=== PATIENT | male | born 1975 | race Caucasian/White ===

== ENCOUNTER 2018-01-07 23:14 | Emergency (ER) | payer SELFPAY ==
[~2018-01-07] VITALS: Ht 175.3 cm; Wt 100.5 kg
[2018-01-07 23:27] VITALS: Ht 175.3 cm; Wt 100.5 kg
[2018-01-08 01:06] VITALS: BP 120/72
== END 2018-01-08 01:07 | disposition home or self-care (01) ==
LOC: D.ER 23:14
DX: S60.032A Contusion of left middle finger without damage to nail, initial encounter (principal); W23.0XXA Caught, crushed, jammed, or pinched between moving objects, initial encounter; Y93.89 Activity, other specified; Y92.89 Other specified places as the place of occurrence of the external cause

== ENCOUNTER 2018-10-23 07:46 | Inpatient (IN) | payer SELFPAY ==
[2018-10-23 08:47] LABS: BASOPHILS 0.2 % (0-2); EOSINOPHILS 2.8 % (0-7); HEMATOCRIT 36.6 % (42.0-54.0); HEMOGLOBIN 12.7 g/dL (13.5-17.5); IMMATURE GRANULOCYTES 0.2 % (0-5); MCHC 34.7 g/dL (31.0-37.0); MCV 80.6 fL (80.0-100.0); MEAN PLATELET VOLUME 9.3 fL (7.4-10.4); MONOCYTES 8.4 % (2-11); NEUTROPHILS 82.4 % (40-80); RBC 4.54 10x6/uL (4.20-6.10); RDW 14.9 % (11.5-14.5); WBC 9.8 10x3/uL (4.8-10.8)
--- NOTE | 2018-10-23 09:00 | NUR ---
PATIENT UPDATED ON PLAN OF CARE AND DELAYS IN CARE. NO NEEDS NOTED. WILL CONTINUE TO MONITOR.
[2018-10-23 09:02] LABS: PLATELET COUNT 100 10x3/uL (130-400)
[2018-10-23 09:04] LABS: ALBUMIN 3.2 g/dL (3.4-5.0); ALKALINE PHOSPHATASE 79 U/L (46-116); ALT (SGPT) 26 U/L (10-68); BILIRUBIN - TOTAL 1.69 mg/dL (0.2-1.3); CALC OSMOLALITY 288 mosm/kg (275-300); CALCIUM 8.4 mg/dL (8.5-10.1); CARBON DIOXIDE 23.6 mmol/L (21.0-32.0); CHLORIDE - SERUM 102 mmol/L (98-107); GLUCOSE 392 mg/dL (74-106); KETONE - SERUM NEGATIVE (NEGATIVE); MAGNESIUM - SERUM 1.8 mg/dL (1.8-2.4); POTASSIUM - SERUM 3.6 mmol/L (3.5-5.1); PROTEIN - SERUM 6.6 g/dL (6.4-8.2); SODIUM 136 mmol/L (136-145); UREA NITROGEN 16 mg/dL (7-18); eGFR NON AFRICAN AMERICAN 87 mL/min (90-120)
[2018-10-23 09:32] LABS: APPEARANCE CLEAR (CLEAR); BILIRUBIN NEGATIVE (NEGATIVE); COLOR YELLOW (YELLOW); GLUCOSE 1000 mg/dL (NEGATIVE); KETONE MODERATE mg/dL (NEGATIVE); NITRITE NEGATIVE (NEGATIVE); PROTEIN TRACE mg/dL (NEGATIVE); SPECIFIC GRAVITY 1.015 (1.005-1.020)
[2018-10-23 09:33] LABS: BACTERIA FEW /hpf (NONE SEEN); EPITHELIAL CELLS OCC /hpf (0-5); MUCUS <1+ /lpf (NONE SEEN); RED CELLS - URINE 0-5 /hpf (0-5); SPERMATOZOA OCC /hpf (NONE SEEN); WHITE CELLS - URINE RARE /hpf (0-5)
[2018-10-23 09:47] LABS: PLATELET ESTIMATE DECREASED
[2018-10-23 09:49] LABS: ANISOCYTOSIS OCC; ROULEAUX OCC
--- NOTE | 2018-10-23 10:00 | NUR ---
PATIENT AWAKE AND ALERT. HE IS TEXTING ON HIS CELL PHONE. NO NEEDS NOTED. UPDATED ON PLAN OF CARE AND DELAYS IN CARE. WILL CONTINUE TO MONITOR.
[2018-10-23 10:25] VITALS: BP 108/63
--- NOTE | 2018-10-23 11:00 | NUR ---
PATIENT IS AWAKE AND ALERT. NO NEEDS NOTED. UPDATED ON PLAN OF CARE AND DELAYS IN CARE. WILL CONTNUE TO MONITOR.
[2018-10-23 12:15] VITALS: BP 113/71
--- NOTE | 2018-10-23 13:00 | NUR ---
PT ARRIVED TO ROOM 2224 FROM ER ORIENTATED TO ROOM CL IN REACH
[2018-10-23 13:54] VITALS: BP 104/53
[2018-10-23 17:55] VITALS: BP 133/79
--- NOTE | 2018-10-23 18:05 | MORECARE ---
CASE MANAGEMENT DISCHARGE SUMMARY PATIENT: JONEL LADD UNIT: [id number] ADM DATE: 10/23/18 AGE: 43 : 75 SEX: M ROOM/BED: D.2224 AUTHOR: ERIN AGEE PHYSICIAN: REFERRING PHYSICIAN: HOLLAND MITCHELL DO DATE OF SERVICE: 10/23/18 Discharge Plan Patient Name: JONEL LADD [facility] [facility] 1975 Planned Disposition: Home Anticipated Discharge Date: Discharge Date: Expected LOS: Initial Reviewer: [email or web address] Initial Review Date: 10/23/2018 Generated: 10/23/18 7:05 pm Patient Name: JONEL LADD Page [id number] at 1805 All edits/amendments must be made on the electronic document DICTATION DATE: 10/23/181803 RUG SETTER AXMINSTER: CARLTON 10/23/181803 RPT#: [id number] DC DATE: STATUS: ADM IN [facility] [address] [place] [address] END OF REPORT
--- NOTE | 2018-10-23 18:11 | MORECARE ---
CASE MANAGEMENT DISCHARGE SUMMARY PATIENT: JONEL LADD UNIT: [id number] ADM DATE: 10/23/18 AGE: 43 : 75 SEX: M ROOM/BED: D.2224 AUTHOR: ERIN AGEE PHYSICIAN: REFERRING PHYSICIAN: HOLLAND MITCHELL DO DATE OF SERVICE: 10/23/18 Discharge Plan Patient Name: JONEL LADD [facility] [facility] 1975 Planned Disposition: Home Anticipated Discharge Date: Discharge Date: Expected LOS: Initial Reviewer: [email or web address] Initial Review Date: 10/23/2018 Generated: 10/23/18 7:11 pm DCPIA - Discharge Planning Initial Assessment Updated by [email or web address]: Anika Parada on 10/23/18 6:07 pm * Is the patient Alert and Oriented? Yes * How many steps to enter\exit or inside your home? ONE * PCP DR LAWSON * Pharmacy [facility] [place] * Preadmission Environment Home Alone * ADLs Independent * Equipment None * Other Equipment N/A * List name and contact numbers for known caregivers / representatives who currently or will assist patient after discharge: RUBEN HUGHES- [phone] * Verbal permission to speak to the caregivers and representatives has been obtained from the patient. No * Community resources currently utilized None * Please name any agencies selected above. N/A * Additional services required to return to the preadmission environment? Yes * Can the patient safely return to the preadmission environment? Yes * Has this patient been hospitalized within the prior 30 days at any hospital? No Last DP export: 10/23/18 5:05 p Patient Name: JONEL LADD Page [id number] at 1811 All edits/amendments must be made on the electronic document DICTATION DATE: 10/23/181810 PHYSICAL THERAPIST ASSISTANT: CARLTON 10/23/181810 RPT#: [id number] DC DATE: STATUS: ADM IN [facility] [address] [place] [address] END OF REPORT
--- NOTE | 2018-10-23 18:30 | MORECARE ---
CASE MANAGEMENT DISCHARGE SUMMARY PATIENT: JONEL LADD UNIT: [id number] ADM DATE: 10/23/18 AGE: 43 : 75 SEX: M ROOM/BED: D.2224 AUTHOR: CYNDIE,DOC PHYSICIAN: REFERRING PHYSICIAN: HOLALND MITCHELL DO DATE OF SERVICE: 10/23/18 Discharge Plan Patient Name: JONEL LADD Facility: [facility]:[place] : 1975 Planned Disposition: Home Anticipated Discharge Date: Discharge Date: Expected LOS: Initial Reviewer: [email or web address] Initial Review Date: 10/23/2018 Generated: 10/23/18 7:30 pm DCP- Discharge Planning Updated by [email or web address]: Anika Parada on 10/23/18 5:[address] CM RECEIVED CONSULT. PATIENT IS NON COMPLAINT WITH HIS DIABETIC MEDICATIONS. CM VISITED EXPLAINED ROLE AND RECEIVED PERMISSION TO CONTINUE THE ASSESSEMENT. CM ASK WHY HE DID NOT TAKE HIS MEDICATIONS. PATIENT STATES HE KNOWS HE SHOULD, HE IS "HARD HEADED." STATES WE HAVE GIVEN HIM" SOMETHINGS TO THINK ABOUT. " CM EXPLAINED IN DETAIL THE PROCESS FOR DETERIORATION OF EXTREMITIES AND TREATMENT ISSUES. THE PATIENT STATES HE DOES NOT QUALIFY FOR MEDICAID. HE MAKES" JUST A LITTLE TOO MUCH MONEY." MED DATA HAS VISITED WITH HIM. HE STATES HE THINKS HE CAN AFFORD THE MEDS. LIKELY WILL NEED ASSISTANCE. DME- NONE PCP[facility] [address] ADVISED [facility] WHICH MAY BE ABLE TO ASSIST WITH A RESOURCE. ADVISED CM'S WILL FOLLOW TO ASSIST IS APPROPRIATE. STRONGLY ENCOURAGED TO COMPLY TO MAINTAIN HIS EXTREMITIES. PATIENT IS PLANNING ON DRIVING HIMSELF HOME. HIS CAR IS IN THE PARKING LOT. DCPIA - Discharge Planning Initial Assessment Updated by [email or web address]: Anika Parada on 10/23/18 6:07 pm * Is the patient Alert and Oriented? Yes * How many steps to enter\\exit or inside your home? ONE * PCP DR LAWSON * Pharmacy [facility] [address] * Preadmission Environment Home Alone * ADLs Independent * Equipment None * Other Equipment N/A * List name and contact numbers for known caregivers / representatives who currently or will assist patient after discharge: RUBEN HUGHES- [phone] * Verbal permission to speak to the caregivers and representatives has been obtained from the patient. No * Community resources currently utilized None * Please name any agencies selected above. N/A * Additional services required to return to the preadmission environment? Yes * Can the patient safely return to the preadmission environment? Yes * Has this patient been hospitalized within the prior 30 days at any hospital? No Last DP export: 10/23/18 5:11 p Patient Name: JONEL LADD Page [phone] at 1830 All edits/amendments must be made on the electronic document DICTATION DATE: 10/23/181829 SUBSTANCE ABUSE PREVENTION COORDINATOR: CARLTON 10/23/181829 RPT#: [id number] DC DATE: STATUS: ADM IN [facility] [address] [place] [address] END OF REPORT
--- NOTE | 2018-10-23 19:00 | NUR ---
REPORT RECEIVED AND CARE OF PT ASSUMED. PT LYING IN SEMI LEONARD'S POSITION WATCHING TV. IV IN RIGHT AC PATENT WITH NS INFUSING AT 100 ML / HR. WILL MONITOR FOR NEEDS.
[2018-10-23 20:00] VITALS: BP 149/87
--- NOTE | 2018-10-23 20:08 | NUR ---
PAGED OBSERVATORY DIRECTOR HIGH SCHOOL SOCIAL STUDIES TUTOR AND RECEIVED ORDER FOR FIORICET PO FOR PT C/O MAGRAINE HEADACHE.
--- NOTE | 2018-10-23 20:26 | NUR ---
HS MEDICATIONS GIVEN. FSBS 236 REQUIRING COVERAGE WITH 4 UNITS OF INSULIN PER SLIDING SCALE.
--- NOTE | 2018-10-23 21:16 | NUR ---
GAVE FIORICET PO PER PRN ORDER FOR MIGRAINE HEADACHE.
[2018-10-24] VITALS: BP 102/56
[2018-10-24 04:00] VITALS: BP 124/74
[2018-10-24 04:25] LABS: BASOPHILS 0.3 % (0-2); EOSINOPHILS 5.4 % (0-7); HEMATOCRIT 33.2 % (42.0-54.0); HEMOGLOBIN 11.5 g/dL (13.5-17.5); IMMATURE GRANULOCYTES 0.2 % (0-5); LYMPHOCYTES 14.8 % (15-50); MCH 27.6 pg (26.0-34.0); MCHC 34.6 g/dL (31.0-37.0); MCV 79.8 fL (80.0-100.0); MEAN PLATELET VOLUME 9.8 fL (7.4-10.4); MONOCYTES 12.4 % (2-11); NEUTROPHILS 66.9 % (40-80); PLATELET COUNT 81 10x3/uL (130-400); RBC 4.16 10x6/uL (4.20-6.10); RDW 14.6 % (11.5-14.5)
[2018-10-24 04:29] LABS: WBC 6.5 10x3/uL (4.8-10.8)
[2018-10-24 04:39] LABS: ALBUMIN 2.4 g/dL (3.4-5.0); ALKALINE PHOSPHATASE 93 U/L (46-116); ALT (SGPT) 26 U/L (10-68); BILIRUBIN - TOTAL 1.02 mg/dL (0.2-1.3); CALCIUM 7.6 mg/dL (8.5-10.1); CARBON DIOXIDE 23.4 mmol/L (21.0-32.0); CHLORIDE - SERUM 105 mmol/L (98-107); CREATININE - SERUM 0.8 mg/dL (0.6-1.3); POTASSIUM - SERUM 3.1 mmol/L (3.5-5.1); PROTEIN - SERUM 5.4 g/dL (6.4-8.2); SODIUM 138 mmol/L (136-145); eGFR NON AFRICAN AMERICAN > 90 mL/min (90-120)
[2018-10-24 04:53] LABS: CALC OSMOLALITY 284 mosm/kg (275-300); GLUCOSE 285 mg/dL (74-106); UREA NITROGEN 11 mg/dL (7-18)
[2018-10-24 05:13] LABS: PLATELET ESTIMATE DECREASED
[2018-10-24 08:55] VITALS: BP 124/75
[2018-10-24 10:52] VITALS: BMI 32.8
[2018-10-24 12:34] VITALS: BP 125/82
[2018-10-24 17:33] VITALS: BP 124/79
[2018-10-24 18:02] LABS: % SATURATION 12 % (15-55); IRON 23 ug/dl (35-150); TOTAL IRON BIND CAPACITY 181 ug/dl (260-445); UNSAT IRON BIND CAPACITY 158 ug/dl (150-375)
[2018-10-24 20:00] VITALS: BP 141/82
--- NOTE | 2018-10-25 01:36 | NUR ---
rec'd. chge of shift in bed eyes closed resp. deep and even. will continue to monitor for any chges. and follow current plan of care.
[2018-10-25 05:45] LABS: BASOPHILS 0.5 % (0-2); EOSINOPHILS 6.5 % (0-7); HEMATOCRIT 32.6 % (42.0-54.0); HEMOGLOBIN 11.4 g/dL (13.5-17.5); IMMATURE GRANULOCYTES 0.3 % (0-5); LYMPHOCYTES 17.3 % (15-50); MCH 28.1 pg (26.0-34.0); MCV 80.5 fL (80.0-100.0); MEAN PLATELET VOLUME 9.8 fL (7.4-10.4); MONOCYTES 12.7 % (2-11); NEUTROPHILS 62.7 % (40-80); PLATELET COUNT 95 10x3/uL (130-400); RBC 4.05 10x6/uL (4.20-6.10); RDW 14.7 % (11.5-14.5); WBC 6.3 10x3/uL (4.8-10.8)
--- NOTE | 2018-10-25 06:00 | NUR ---
I have reviewed this patient and I concur with the Shift Assessment completed by the Licensed Practical Nurse today this shift.
[2018-10-25 06:07] LABS: ALBUMIN 2.4 g/dL (3.4-5.0); ALKALINE PHOSPHATASE 140 U/L (46-116); ALT (SGPT) 31 U/L (10-68); BILIRUBIN - TOTAL 0.53 mg/dL (0.2-1.3); CALCIUM 7.6 mg/dL (8.5-10.1); CARBON DIOXIDE 24.1 mmol/L (21.0-32.0); CHLORIDE - SERUM 110 mmol/L (98-107); CREATININE - SERUM 0.6 mg/dL (0.6-1.3); POTASSIUM - SERUM 3.3 mmol/L (3.5-5.1); PROTEIN - SERUM 5.3 g/dL (6.4-8.2); SODIUM 143 mmol/L (136-145); eGFR NON AFRICAN AMERICAN > 90 mL/min (90-120)
[2018-10-25 06:12] LABS: CALC OSMOLALITY 286 mosm/kg (275-300); GLUCOSE 172 mg/dL (74-106); UREA NITROGEN 7 mg/dL (7-18)
[2018-10-25 06:33] VITALS: BP 140/83
[2018-10-25 08:14] VITALS: BP 126/79
--- NOTE | 2018-10-25 08:17 | NUR ---
PT IS A&OX4. PT RT FA IV PATENT AND INFUSING AT 100ML/HR. PT RT FOOT IS RED AND SWOLLEN. MULITPLE SORES NOTED TO FOOT, RT BIG TOE AND BEHIND KNEE. PT C/O OF PAIN 7/10 AND NAUSEA. PAIN MEDICATION AND ZOFRAN ADMINISTERED AT THIS TIME UPON REQUEST. PT DENIES FURTHER NEEDS. WCTM.
[2018-10-25] MEDS ORDERED: GLYBURIDE5 M1 PO (10:22)
[2018-10-25] MEDS ORDERED: GLUCOPHAGE500 MG PO (10:22)
[2018-10-25] MEDS ORDERED: DOXYCYCLINE HY100 M2 PO (10:25)
[2018-10-25 11:46] VITALS: BP 129/80
--- NOTE | 2018-10-25 14:16 | NUR ---
INFECTION CONTROL NOTIFED OF COUND CULTURE RESULTS. PT BEING TAKEN OUT OF TEMPORARY ISOLATION.
--- NOTE | 2018-10-25 15:13 | NUR ---
PT DISCHARGE INSTRUCTIONS REV'D AND PT STATES UNDERSTANDING. PT MEDICATIONS CALLED IN TO [facility]. PT WILL DISCHARGE AFTER ABX COMPLETE.
[2018-10-25 17:17] VITALS: BP 129/81
--- NOTE | 2018-10-25 17:31 | MORECARE ---
CASE MANAGEMENT DISCHARGE SUMMARY PATIENT: JONEL LADD UNIT: [id number] ADM DATE: 10/23/18 AGE: 43 : 75 SEX: M ROOM/BED: D.2224 AUTHOR: CYNDIE,DOC PHYSICIAN: REFERRING PHYSICIAN: HOLLAND MITCHELL DO DATE OF SERVICE: 10/25/18 Discharge Plan Patient Name: JONEL LADD Facility: [facility]:[place] : 1975 Planned Disposition: Home Anticipated Discharge Date: Discharge Date: Expected LOS: Initial Reviewer: [email or web address] Initial Review Date: 10/23/2018 Generated: 10/25/18 6:31 pm Comments DCP- Discharge Planning Updated by [email or web address]: Anika Parada on 10/25/18 4:[address] LATE ENTRY 1000 MET WITH THE PATIENT THIS AM. PLANS FOR DISCHARGE TO [facility]. HE HAS TRANSPORTATION RETAIL AIDE/ NURSE QUILL MACHINE OPERATOR STATES HE DOES NOT MONEY FOR HIS MEDICATIONS. CM SPOKE WITH HIM. HE WILL GET PAID LATER IN THE WEEK. DISCUSSED THE [employer]. HE WOULD NEED APPROXIMATELY 60.00 FOR MEMBERSHIP AND HIS MEDS. HIS "GIRLFRIEND" IS SEARCHING FOR ASSISTANCE. TC TO [facility], THE CONTRACTED PHARMACY FOR CASE MANAGEMENT ASSISTANCE. SPOKE W/ SUNIL, REVIEWED MED ORDERS. SHE STATED THEY WOULD COST $38.96 FOR ALL THREE. THE PATIENT HAS BUT NO STRIPS. CM ADVISED HE COULD A MORE REASONABLE ONE FROM [facility] OR [facility]. THE STRIPS ARE LESS EXPENSIVE. VM MESSAGE LEFT FOR SHANIQUA PRAKASH, GIZZARD SKIN REMOVER. REQUESTED APPROVAL FOR MED ASSIST. REC APPROVAL FOR ASSIST. ADVISED THE PRIMARY NURSE. SHE CALLED IN THE MEDICATIONS W/ APPROVAL FOR CASE MANAGMENT TO OBTAIN 2 WEEKS OF MEDICATION. 1630 THE PRIMARY NURSE ADVISED THE PATIENT C/O NAUSEA AND VOMITING. SHE ADVISED THE MD. SHE STATES PATIENT WILL NOT BE DISCHARGED TODAY. DCP- Discharge Planning Updated by [id number]: Anika Parada on 10/23/18 5:[address] CM RECEIVED CONSULT. PATIENT IS NON COMPLAINT WITH HIS DIABETIC MEDICATIONS. CM VISITED EXPLAINED ROLE AND RECEIVED PERMISSION TO CONTINUE THE ASSESSEMENT. CM ASK WHY HE DID NOT TAKE HIS MEDICATIONS. PATIENT STATES HE KNOWS HE SHOULD, HE IS "HARD HEADED." STATES WE HAVE GIVEN HIM" SOMETHINGS TO THINK ABOUT. " CM EXPLAINED IN DETAIL THE PROCESS FOR DETERIORATION OF EXTREMITIES AND TREATMENT ISSUES. THE PATIENT STATES HE DOES NOT QUALIFY FOR MEDICAID. HE MAKES" JUST A LITTLE TOO MUCH MONEY." MED DATA HAS VISITED WITH HIM. HE STATES HE THINKS HE CAN AFFORD THE MEDS. LIKELY WILL NEED ASSISTANCE. DME- NONE PCP- DR LAWSON [facility]- [facility] [address] ADVISED [facility] WHICH MAY BE ABLE TO ASSIST WITH A RESOURCE. ADVISED CM'S WILL FOLLOW TO ASSIST IS APPROPRIATE. STRONGLY ENCOURAGED TO COMPLY TO MAINTAIN HIS EXTREMITIES. PATIENT IS PLANNING ON DRIVING HIMSELF HOME. HIS CAR IS IN THE PARKING LOT. DCPIA - Discharge Planning Initial Assessment Updated by [email or web address]: Anika Parada on 10/23/18 6:07 pm * Is the patient Alert and Oriented? Yes * How many steps to enter\\exit or inside your home? ONE * PCP DR LAWSON * Pharmacy [facility] [address] * Preadmission Environment Home Alone * ADLs Independent * Equipment None * Other Equipment N/A * List name and contact numbers for known caregivers / representatives who currently or will assist patient after discharge: RBUEN HUGHES- [phone] * Verbal permission to speak to the caregivers and representatives has been obtained from the patient. No * Community resources currently utilized None * Please name any agencies selected above. N/A * Additional services required to return to the preadmission environment? Yes * Can the patient safely return to the preadmission environment? Yes * Has this patient been hospitalized within the prior 30 days at any hospital? No Last DP export: 10/23/18 5:30 p Patient Name: JONEL LADD Page [id number] at 1731 All edits/amendments must be made on the electronic document DICTATION DATE: 10/25/181729 ROTATING EQUIPMENT ENGINEER: CARLTON 10/25/181729 RPT#: [id number] CT DATE: STATUS: ADM IN [facility] [address] [facility] [place] [id number] END OF REPORT
[2018-10-25 20:00] VITALS: BP 152/89
--- NOTE | 2018-10-26 03:47 | NUR ---
I have reviewed this patient and I concur with the Shift Assessment completed by the Licensed Practical Nurse today this shift.
[2018-10-26 04:40] LABS: BASOPHILS 0.4 % (0-2); EOSINOPHILS 5.4 % (0-7); HEMATOCRIT 34.3 % (42.0-54.0); HEMOGLOBIN 11.5 g/dL (13.5-17.5); LYMPHOCYTES 19.5 % (15-50); MCH 27.1 pg (26.0-34.0); MCHC 33.5 g/dL (31.0-37.0); MCV 80.7 fL (80.0-100.0); MEAN PLATELET VOLUME 9.1 fL (7.4-10.4); MONOCYTES 9.6 % (2-11); NEUTROPHILS 64.1 % (40-80); RBC 4.25 10x6/uL (4.20-6.10); RDW 14.9 % (11.5-14.5); WBC 7.1 10x3/uL (4.8-10.8)
[2018-10-26 04:56] LABS: PLATELET COUNT 119 10x3/uL (130-400)
[2018-10-26 05:17] LABS: ALBUMIN 2.4 g/dL (3.4-5.0); ALKALINE PHOSPHATASE 166 U/L (46-116); ALT (SGPT) 35 U/L (10-68); BILIRUBIN - TOTAL 0.63 mg/dL (0.2-1.3); CALC OSMOLALITY 283 mosm/kg (275-300); CARBON DIOXIDE 23.7 mmol/L (21.0-32.0); CHLORIDE - SERUM 108 mmol/L (98-107); CREATININE - SERUM 0.6 mg/dL (0.6-1.3); GLUCOSE 175 mg/dL (74-106); POTASSIUM - SERUM 3.3 mmol/L (3.5-5.1); PROTEIN - SERUM 5.5 g/dL (6.4-8.2); SODIUM 142 mmol/L (136-145); eGFR NON AFRICAN AMERICAN > 90 mL/min (90-120)
[2018-10-26 05:25] LABS: UREA NITROGEN 5 mg/dL (7-18)
--- NOTE | 2018-10-26 07:30 | NUR ---
PATIENT TO GET GI STUDY DONE.
[2018-10-26 08:12] LABS: FOLATE (FOLIC ACID) - SERUM 5.6 ng/mL (>3.0)
--- NOTE | 2018-10-26 08:45 | NUR ---
PATIENT IN BED WITH IV INTACT. NO COMPLAINTS OR SIGNS OF DISTRESS. WAITING FOR RESULTS FROM GI TEST TO BE ABLE TO EAT. CALL LIGHT WITHIN REACH.
[2018-10-26 12:09] VITALS: BP 156/87
--- NOTE | 2018-10-26 14:50 | NUR ---
PATIENT ATE 75% OF DIABETIC DIET WITH NO PROBLEMS AT THIS TIME. CALL LIGHT WITHIN REACH.
[2018-10-26 16:24] VITALS: BP 127/76
[2018-10-26] MEDS ORDERED: HUMULIN N100 U/ML SC (17:12)
--- NOTE | 2018-10-26 17:18 | NUR ---
PATIENT RECIEVED EDUCATION ON HOW TO DRAW UP AND INJECT INSULIN. GAVE SELF INJECTION IN ABDOMEN. EXPLAINED ON HOW TO DRAW UP THE INSULIN AND INJECT IT. PATIENT DEMONSTRATED BACK BY DRAWING UP 8 UNITS OF INSULIN AND INJECTING IT INTO A BANANA. NO QUESTIONS AT THIS TIME. WILL SEND INSTRUCTIONS HOME SO HE WILL BE ABLE TO REMEMBER THE STEPS TO SANITIZING, DRAWING UP, AND INJECTING INSULIN. VERBALIZED UNDERSTANDING. CALL LIGHT WITHIN REACH.
--- NOTE | 2018-10-26 18:31 | NUR ---
PATIENT RECIEVED DC INSTRUCTIONS. VERBALIZED UNDERSTANDING. QUESTIONS ANSWERED ABOUT MEDS. WANTED TO KNOW ABOUT TESTING STRIPS FOR GLUCOMETER. EXPLAINED THAT NOTES SAYS THAT IF HE GOES TO [facility] OR [facility] THEY ARE BETTER PRICED. PATIENT VERBALIZED UNDERSTANDING. STATED HE COULD GET ONE FROM HIS DOCTOR FOR FREE. EXPLAINED TO PATIENT IF THAT IS WHAT HE NEEDED TO DO IT WOULD BE GOOD, BECAUSE HE HAS TO CHECK HIS BS BID ORDERED AND RECORD FOR DR. CLAYTON. VERBALIZED UNDERSTANDING. NO OTHER QUESTIONS OR COMPLAINTS. TOLD HIM TO WAIT FOR DR. COWAN APPROVAL BEFORE RETURNING TO WORK WELL. PATIENT ESCORTED DOWN TO PRIVATE VEHICLE WITH PERSONAL BELONGINGS VIA WC BY LEONARDO.
--- NOTE | 2018-10-27 17:04 | MORECARE ---
CASE MANAGEMENT DISCHARGE SUMMARY PATIENT: JONEL LADD UNIT: [id number] ADM DATE: 10/23/18 AGE: 43 : 75 SEX: M ROOM/BED: D.2224 AUTHOR: CYNDIE,DOC PHYSICIAN: REFERRING PHYSICIAN: HOLLAND MITCHELL DO DATE OF SERVICE: 10/27/18 Discharge Plan Patient Name: JONEL LADD Facility: [facility]:[place] : 1975 Planned Disposition: Home Anticipated Discharge Date: Discharge Date: 10/26/2018 Expected LOS: 0 Initial Reviewer: [email or web address] Initial Review Date: 10/23/2018 Generated: 10/27/18 6:04 pm Comments DCP- Discharge Planning Updated by [email or web address]: Anika Parada on 10/25/18 4:[address] LATE ENTRY 1000 MET WITH THE PATIENT THIS AM. PLANS FOR DISCHARGE TO [facility]. HE HAS TRANSPORTATION SOFTWARE TEST MANAGER/ NURSE CLIENT EXPERIENCE MANAGER STATES HE DOES NOT MONEY FOR HIS MEDICATIONS. CM SPOKE WITH HIM. HE WILL GET PAID LATER IN THE WEEK. DISCUSSED THE [employer]. HE WOULD NEED APPROXIMATELY 60.00 FOR MEMBERSHIP AND HIS MEDS. HIS "GIRLFRIEND" IS SEARCHING FOR ASSISTANCE. TC TO [facility], THE CONTRACTED PHARMACY FOR CASE MANAGEMENT ASSISTANCE. SPOKE W/ SUNIL, REVIEWED MED ORDERS. SHE STATED THEY WOULD COST $38.96 FOR ALL THREE. THE PATIENT HAS BUT NO STRIPS. CM ADVISED HE COULD A MORE REASONABLE ONE FROM [facility] OR [facility]. THE STRIPS ARE LESS EXPENSIVE. VM MESSAGE LEFT FOR SHANIQUA PRAKASH, CORE DRILLER. REQUESTED APPROVAL FOR MED ASSIST. REC APPROVAL FOR ASSIST. ADVISED THE PRIMARY NURSE. SHE CALLED IN THE MEDICATIONS W/ APPROVAL FOR CASE MANAGMENT TO OBTAIN 2 WEEKS OF MEDICATION. 1630 THE PRIMARY NURSE ADVISED THE PATIENT C/O NAUSEA AND VOMITING. SHE ADVISED THE MD. SHE STATES PATIENT WILL NOT BE DISCHARGED TODAY. DCP- Discharge Planning Updated by [email or web address]: Anika Parada on 10/23/18 5:[address] CM RECEIVED CONSULT. PATIENT IS NON COMPLAINT WITH HIS DIABETIC MEDICATIONS. CM VISITED EXPLAINED ROLE AND RECEIVED PERMISSION TO CONTINUE THE ASSESSEMENT. CM ASK WHY HE DID NOT TAKE HIS MEDICATIONS. PATIENT STATES HE KNOWS HE SHOULD, HE IS "HARD HEADED." STATES WE HAVE GIVEN HIM" SOMETHINGS TO THINK ABOUT. " CM EXPLAINED IN DETAIL THE PROCESS FOR DETERIORATION OF EXTREMITIES AND TREATMENT ISSUES. THE PATIENT STATES HE DOES NOT QUALIFY FOR MEDICAID. HE MAKES" JUST A LITTLE TOO MUCH MONEY." MED DATA HAS VISITED WITH HIM. HE STATES HE THINKS HE CAN AFFORD THE MEDS. LIKELY WILL NEED ASSISTANCE. DME- NONE PCP- DR LAWSON [facility]- [facility] [address] ADVISED [facility] WHICH MAY BE ABLE TO ASSIST WITH A RESOURCE. ADVISED CM'S WILL FOLLOW TO ASSIST IS APPROPRIATE. STRONGLY ENCOURAGED TO COMPLY TO MAINTAIN HIS EXTREMITIES. PATIENT IS PLANNING ON DRIVING HIMSELF HOME. HIS CAR IS IN THE PARKING LOT. DCPIA - Discharge Planning Initial Assessment Updated by [email or web address]: Anika Parada on 10/23/18 6:07 pm * Is the patient Alert and Oriented? Yes * How many steps to enter\\exit or inside your home? ONE * PCP DR LAWSON * Pharmacy [facility] [address] * Preadmission Environment Home Alone * ADLs Independent * Equipment None * Other Equipment N/A * List name and contact numbers for known caregivers / representatives who currently or will assist patient after discharge: RUBEN HUGHES- [phone] * Verbal permission to speak to the caregivers and representatives has been obtained from the patient. No * Community resources currently utilized None * Please name any agencies selected above. N/A * Additional services required to return to the preadmission environment? Yes * Can the patient safely return to the preadmission environment? Yes * Has this patient been hospitalized within the prior 30 days at any hospital? No Last DP export: 10/25/18 4:31 p Patient Name: JONEL LADD Page [phone] at 1704 All edits/amendments must be made on the electronic document DICTATION DATE: 10/27/181703 AFTER SCHOOL PROGRAM COORDINATOR: CARLTON 10/27/181703 RPT#: [id number] DC DATE:10/26/18 STATUS: DIS IN [facility] [address] [place] [address] END OF REPORT
== END 2018-10-26 18:41 | disposition home or self-care (01) | DRG 638 ==
LOC: D.ER 07:46 → D.MS 12:29
PROVIDERS: Family Medicine; Internal Medicine Nephrology; ADMIT Family Medicine; ATTEND Family Medicine
DX: E11.65 Type 2 diabetes mellitus with hyperglycemia (principal); L03.115 Cellulitis of right lower limb; E66.01 Morbid (severe) obesity due to excess calories; Z91.128 Patient's intentional underdosing of medication regimen for other reason; D64.9 Anemia, unspecified; E87.6 Hypokalemia

== ENCOUNTER 2020-08-17 08:58 | Emergency (ER) | payer SELFPAY ==
[~2020-08-17] VITALS: Ht 175.3 cm; Wt 95.5 kg
[~2020-08-17 08:58] MED LIST: DOXYCYCLINE HY100 M2 PO; GLUCOPHAGE500 MG PO; GLYBURIDE5 M1 PO; HUMULIN N100 U/ML SC
[2020-08-17 09:01] VITALS: BP 126/81; Ht 175.3 cm; Wt 95.5 kg
[2020-08-17] MEDS ORDERED: CEPHALEXIN500 M1 PO (09:26)
[2020-08-17] MEDS ORDERED: CLEOCIN HCL300 MG PO (09:26)
[2020-08-17 09:29] LABS: BASOPHILS 0.4 % (0-2); EOSINOPHILS 0.7 % (0-7); HEMOGLOBIN 13.4 g/dL (13.5-17.5); IMMATURE GRANULOCYTES 0.2 % (0-5); LYMPHOCYTES 7.3 % (15-50); MCH 27.7 pg (26.0-34.0); MCHC 33.5 g/dL (31.0-37.0); MCV 82.8 fL (80.0-100.0); MEAN PLATELET VOLUME 9.3 fL (7.4-10.4); MONOCYTES 7.8 % (2-11); NEUTROPHIL ABS# 11.52 10x3/uL (1.78-5.38); NEUTROPHILS 83.6 % (40-80); RBC 4.83 10x6/uL (4.20-6.10); RDW 14.7 % (11.5-14.5); WBC 13.8 10x3/uL (4.8-10.8)
[2020-08-17 09:31] LABS: PLATELET COUNT 236 10x3/uL (130-400)
[2020-08-17 09:41] LABS: ALBUMIN 3.6 g/dL (3.4-5.0); ALKALINE PHOSPHATASE 102 U/L (30-120); ALT (SGPT) 28 U/L (10-68); BILIRUBIN - TOTAL 0.85 mg/dL (0.2-1.3); CALCIUM 8.9 mg/dL (8.5-10.1); CARBON DIOXIDE 26.6 mmol/L (21.0-32.0); CHLORIDE - SERUM 96 mmol/L (98-107); POTASSIUM - SERUM 4.6 mmol/L (3.5-5.1); PROTEIN - SERUM 6.8 g/dL (6.4-8.2); SODIUM 129 mmol/L (136-145); UREA NITROGEN 23 mg/dL (7-18); eGFR NON AFRICAN AMERICAN 86 mL/min (90-120)
[2020-08-17 09:42] LABS: CALC OSMOLALITY 287 mosm/kg (275-300)
[2020-08-17 09:43] LABS: GLUCOSE 550 mg/dL (74-106)
[2020-08-17] MEDS ORDERED: GLUCOPHAGE1000 MG PO (10:37)
== END 2020-08-17 11:49 | disposition home or self-care (01) ==
LOC: D.ER 08:58
PROVIDERS: Family Medicine
DX: S90.415A Abrasion, left lesser toe(s), initial encounter (principal); S90.412A Abrasion, left great toe, initial encounter; L03.032 Cellulitis of left toe; E11.65 Type 2 diabetes mellitus with hyperglycemia; E87.1 Hypo-osmolality and hyponatremia; D72.829 Elevated white blood cell count, unspecified; Z79.84 Long term (current) use of oral hypoglycemic drugs; E11.40 Type 2 diabetes mellitus with diabetic neuropathy, unspecified; X58.XXXA Exposure to other specified factors, initial encounter